=== PATIENT | female | born 1990 | race African-American/Black ===

== ENCOUNTER 2024-02-13 19:40 | Emergency (ER) | payer OTHER, SELFPAY ==
[2024-02-13 19:40] VITALS: BMI 39.4
[2024-02-13 19:42] VITALS: BP 150/96
[2024-02-13 20:13] LABS: % Basophils 0.3 % (0-2); % Eosinophils 1.8 % (0-6); % Immature Granulocytes 0.2 % (0-0.5); % Lymphocytes 37.4 % (20.5-51.1); % Monocytes 8.4 % (1.7-9.3); % Neutrophils 51.9 % (42.2-75.2); Absolute Eosinophils 0.1 10^3/uL (0-0.7); Absolute Lymphocytes 2.3 10^3/uL (1.2-3.4); Absolute Monocytes 0.5 10^3/uL (0.1-0.6); Absolute Neutrophils 3.1 10^3/uL (1.4-6.5); Hematocrit 28.9 % (37.0-47.0); Hemoglobin 9.1 g/dL (12.0-16.0); Mean Corp Hgb Conc. 31.5 g/dL (33.0-37.0); Mean Corpuscular Hgb 23.1 pg (27.0-31.0); Mean Corpuscular Volume 73.4 fL (81.0-99.0); Mean Platelet Volume 11.6 fL (7.4-10.4); Nucleated Red Blood Cells % 0 %; Platelet Count 276 10^3/uL (130-400); Red Blood Cell Count 3.94 10^6/uL (4.20-5.40); Red Cell Dist. Width 17.2 % (11.5-14.5)
[2024-02-13 20:28] LABS: HCG, Serum Qualitative Screen Negative
[2024-02-13 20:34] LABS: ALT (SGPT) 12 U/L (0-35); AST (SGOT) 22 U/L (14-36); Albumin 4.3 g/dl (3.5-5.0); Alkaline Phosphatase 115 U/L (38-126); Blood Urea Nitrogen 11 mg/dl (7-17); Calcium 9.5 mg/dl (8.4-10.2); Carbon Dioxide 22 mmol/L (22-30); Chloride 108 mmol/L (98-107); Glucose 69 mg/dl (70-99); Potassium 4.5 mmol/L (3.5-5.1); Sodium 140 mmol/L (135-145); Total Bilirubin 0.3 mg/dl (0.2-1.3); Total Protein 7.7 g/dl (6.3-8.2); eGFR > 60.00
[2024-02-13 20:37] LABS: Troponin I < 0.012 ng/ml
[2024-02-13 21:42] VITALS: BP 93/63
[2024-02-13 22:00] VITALS: BP 98/64
--- NOTE | 2024-02-13 22:18 | ED.GENMED ---
History of Present Illness
General
Chief Complaint: Cardiac Symptoms
Source: patient
Exam Limitations: none
Time Seen by Provider: 02/13/24 21:48
Nursing documentation reviewed up to this point in time: agreed with
Travel History
Have you had any contact with someone who has COVID-19?: No
Do you have any symptoms of coronavirus? Fever > 100 degrees, chills, cough, shortness of breath, sore throat, loss of taste or smell, muscle aches, or headache?: No
History of Present Illness
History of Present Illness:
33 yo female w h/o gastric bypass 09/2021, GERD but not since her gastric bypass, Presents with 2 months of sharp stabbing pain left upper chest and shoulder areas off and on, worse and more frequent past 10 days. Intermittent SOB and 'rapid heart
rate' at times. Denies any symptoms at this time. Asks 'do you think it could be stress?' No recollection of overuse or injury. Works mini shifter as nurses aid.
Hx of significant anemia, followed by heme-onc at [facility] and gets iron infusions. She missed her last infusion, has appointment with Heme-Onc in 4 days.
Denies n/v/d/c. Denies abdominal pain.
Past History
Past History
ED Past Medical History: Asthma and Other (Iron deficiency anemia)
ED Past Surgical History: (x 3) and Other (Gastric bypass 09/2021)
Social History
Tobacco: Non-smoker
Alcohol: None
Personal: Single
Living: with family
Employment: Employed
Review of Systems
Review of Systems
Allergies reviewed?: Yes
All Other Systems: ROS reviewed and negative except as documented in HPI and ROS
Constitutional: Denies fever
Respiratory: Denies cough or trouble breathing
Cardiac: Reports chest pain; Denies diaphoresis, palpitations or syncope
ABD/GI: Denies abdominal pain, nausea, vomiting or diarrhea
: Denies dysuria, frequency or difficulty voiding
Musculoskeletal: Reports other (pain upper left chest and shoulder areas)
Neurological: Reports no symptoms
Phy Exam
Physical Exam
Physical Exam:
GENERAL: No acute distress. A&Ox3.
CONSTITUTIONAL: Afebrile.
EYES: clear, conjunctivae normal
Neck: Supple
ENMT: moist mucus membranes, Pharynx nl
RESPIRATORY: Regular respirations, nonlabored, lungs clear.
CARDIOVASCULAR: Regular rate and rhythm, no murmurs, no rubs.
GI: Soft, nontender, normal BS
MUSCULOSKELETAL: Nontender to palpate about the chest wall and left shoulder, left upper back. Patient standing out of bed, full range of motion of shoulders and torso without elicitation of the pain. Moves with ease. Well perfused.
SKIN: Warm, dry, normal.
PSYCH: Normal mood and affect. Well kept, interactive and appropriate
NEUROLOGIC: Awake, alert and oriented. No focal neurological deficits
Course
Orders/Labs/Results
Orders:
Orders
02/13/24 19:46
Electrocardiogram (*1) Urgent
Reason for Study: Shortness of Breath
EKG- Treatment ONCE
Test Result ONCE
02/13/24 20:06
CMP [Comprehensive Metabolic Panel] Urgent
Complete Blood Count/With Diff Urgent
HCG, Serum Qualitative Screen Urgent
Troponin I Urgent
02/13/24 22:16
CR Chest - 2 Views Urgent
Comment:
Reason For Exam: left chest pain, intermittent SOB
02/13/24 22:34
D-Dimer Urgent
Abnormal Lab Results
02/13/24
20:06
RBC 3.94 L 10^6/uL
(4.20-5.40)
Hgb 9.1 L g/dL
(12.0-16.0)
Hct 28.9 L %
(37.0-47.0)
MCV 73.4 L fL
(81.0-99.0)
MCH 23.1 L pg
(27.0-31.0)
MCHC 31.5 L g/dL
(33.0-37.0)
RDW 17.2 H %
(11.5-14.5)
MPV 11.6 H fL
(7.4-10.4)
Chloride 108 H mmol/L
(98-107)
Glucose 69 L mg/dl
(70-99)
02/13/24 20:06
02/13/24 20:06
Vital Signs
Initial and Last Documented VS:
Initial Vital Signs
Temp Pulse Resp BP Pulse Ox
98 F 86 24 150/96 100
02/13/24 19:42 02/13/24 19:42 02/13/24 19:42 02/13/24 19:42 02/13/24 19:42
Last Documented Vital Signs
Temp Pulse Resp BP Pulse Ox
98 F 63 16 125/77 100
02/13/24 19:42 02/14/24 01:00 02/14/24 01:00 02/14/24 01:00 02/14/24 01:00
MDM/Problems Addressed
Differential Diagnosis Includes:
GERD, musculoskeletal pain, DE, PE, stress
SOB could be from anemia
MDM/Problems Addressed:
33 yo female w h/o gastric bypass 09/2021, GERD but not since her gastric bypass, Presents with 2 months of sharp stabbing pain left upper chest and shoulder areas off and on, worse and more frequent past 10 days. Intermittent SOB and 'rapid heart
rate' at times. Denies any symptoms at this time. Asks 'do you think it could be stress?' No recollection of overuse or injury. Works mini shifter as nurses aid.
Hx of significant anemia, followed by heme-onc at [facility] and gets iron infusions. She missed her last infusion, has appointment with Heme-Onc in 4 days.
Denies n/v/d/c. Denies abdominal pain.
EKG: NSR
8:45 p.m.
CBC: Hgb 9.1 (pt states it has be 7.0 at times). Indices indicated chronic iron deficiency anemia
CMP: normal
Troponin: WNL
02/14/24 12:00 a.m.
D dimer: Normal
HCG neg
CXR NAD
Workup neg, may be musculoskeletal pain
Pt has appointment in 4 days with her Travel Agent about her anemia. Intermittent SOB may be related to this
*EKG
Interpreted by ED Provider?: Yes
EKG Intrepretation Date: 02/13/24
Interpretation: normal
Rate: normal
Rhythm: sinus
[place]: normal axis
Interval: normal interval
QRS Pattern: normal QRS
Ischemia: no ischemia
*Critical Care Note
Total Time (30-74mins, 75-104mins- exclusive of procedures): Not Applicable
ED Attending Note
-
Portions of this chart may have been created with voice recognition software.� Occasional wrong word or��sound alike� substitutions may have occurred due to the inherent limitations of voice recognition software.
Discharge Plan
Departure
Patient Disposition: Home (Routine Discharge)
Date of Disposition: 02/14/24
Time of Disposition: 01:00
Patient with high blood pressure during this ER visit?: No
Condition: Good
Discharge Problem:
Atypical chest pain
Instructions: Costochondritis, Chest Pain (DC), Acid reflux and GERD in adults
Referrals:
ABARINTOS,RAY [Other] - As needed
Activity Restrictions/Additional Instructions:
As we discussed, your workup here tonight shows nothing worrisome.
Ibuprofen 600 mg no more than twice daily for no more than 5 days due to your gastric bypass
your intermittent shortness of breath may be from your anemia,
Interventions
Interventions:
*Risk Screen - Suicide Last Done: 02/13/24 19:42
*General Assessment Last Done: 02/13/24 22:42
*Neglect/Abuse Screening Last Done: 02/13/24 19:42
ED- Fall Risk Assessment Last Done: 02/13/24 22:42
*ED COVID-19 Vaccine History Last Done: 02/14/24 01:16
*Nursing Disposition Last Done: 02/14/24 01:20
ED- Pulmonary Assessment Last Done: 02/13/24 22:42
ED- Cardiac Assessment Last Done: 02/13/24 22:42
Discharge Date and Time
Discharge Date/Time: 02/14/24 01:20
Print Language: BERMUDIAN
[2024-02-13 22:57] LABS: D-Dimer < 0.27 ug/mlFEU (0.00-0.50)
[2024-02-13 23:00] VITALS: BP 124/69
[2024-02-14] VITALS: BP 110/74
[2024-02-14 01:00] VITALS: BP 125/77
== END 2024-02-14 01:20 | disposition home or self-care (01) ==
LOC: EMR 19:40
PROVIDERS: Registered Nurse; Student in an Organized Health Care Education/Training Program; EMERGENCY PHYSICIAN Emergency Medicine
DX: R07.89 Other chest pain (principal); K21.9 Gastro-esophageal reflux disease without esophagitis; J45.909 Unspecified asthma, uncomplicated; D50.9 Iron deficiency anemia, unspecified; Z98.84 Bariatric surgery status
CPT/HCPCS: 99283; 71046; 80053; 84484; 84703; 85025; 85379; 93005

== ENCOUNTER 2024-06-12 08:50 | Emergency (ER) | payer SELFPAY ==
[2024-06-12 09:04] VITALS: BP 109/77
--- NOTE | 2024-06-12 09:52 | ED.GENMED ---
History of Present Illness
<Jeanne Pulido MD, Resident - Last Filed: 06/12/24 12:11>
General
Chief Complaint: Musculo-Skeletal Complaint
Source: patient
Exam Limitations: none
Time Seen by Provider: 06/12/24 09:22
Nursing documentation reviewed up to this point in time: agreed with
History of Present Illness
History of Present Illness:
34-year-old female with history of anemia, supraspinatus tear, who works as a nurses aide in a nursing/rehab facility in [place] presented to the ED for acute onset right arm pain starting at 5:30 AM today when she was helping to roll a large
patient while administering patient care. She describes 5 out of 10 pain and tightness, starting in her right shoulder radiating down to right hand, with numbness of the entire arm and tingling in fingers. There is some mild weakness, and writing
her incident report at work was difficult due to the pain. She was given motrin and acetaminophen with tiger balm which provided some relief.
Past History
<Jeanne Pulido MD, Resident - Last Filed: 06/12/24 12:11>
Past History
ED Past Medical History: Asthma and Other (Iron deficiency anemia, left supraspinatus tear)
ED Past Surgical History: (x 3) and Other (Gastric bypass 09/2021)
Patient has exhibited threatening behavior?: No
Social History
Tobacco: Non-smoker
Alcohol: None
Personal: Single
Living: with family
Employment: Employed
Review of Systems
<Jeanne Pulido MD, Resident - Last Filed: 06/12/24 12:11>
Review of Systems
Constitutional: Denies fever or chills
Respiratory: Denies trouble breathing
Cardiac: Denies chest pain, palpitations or syncope
ABD/GI: Denies abdominal pain, nausea or vomiting
Musculoskeletal: Reports joint pain (Right shoulder and arm pain)
Phy Exam
<Jeanne Pulido MD, Resident - Last Filed: 06/12/24 12:11>
General Physical Exam
General Presentation: well appearing
General age: appears stated age
General Skin: warm and dry
General Mental: alert
Cardiovascular Exam
Cardiovascular Exam: regular rate/rhythm, no edema, no murmur and normal peripheral pulses (Radial)
Pulmonary Exam
Pulmonary Exam: lungs clear, no respiratory distress, no rales, no crackles, no rhonchi and no wheezing
Gastrointestinal Exam
Gastrointestinal Exam: normal bowel sounds, non tender, soft and non distended
Neurological Exam
Neurological Exam: alert, oriented x3 and sensory deficit (Right arm)
Musculoskeletal Exam
Musculoskeletal Exam: full ROM (R shoulder), no edema and other (point tenderness in anterior shoulder and anterior mid arm. Normal cap refill. Pain/weakness on supination vs pronation of R arm. )
Course
<Jeanne Pulido MD, Resident - Last Filed: 06/12/24 12:11>
Orders/Labs/Results
Orders:
Orders
06/12/24 10:00
CR Shoulder - Right Min 2 View Urgent
Comment:
Reason For Exam: pain in shoulder
06/12/24 10:16
Ketorolac [Toradol] 30 mg IM NOW STA
06/12/24 11:50
Sling Right-Treatment ONCE
Vital Signs
Initial and Last Documented VS:
Initial Vital Signs
Temp Pulse Resp BP Pulse Ox
36.6 C 67 16 109/77 98
06/12/24 09:04 06/12/24 09:04 06/12/24 09:04 06/12/24 09:04 06/12/24 09:04
Last Documented Vital Signs
Temp Pulse Resp BP Pulse Ox
36.6 C 67 16 109/77 98
06/12/24 09:04 06/12/24 09:04 06/12/24 09:04 06/12/24 09:04 06/12/24 09:04
<Aman Barr MD - Last Filed: 06/12/24 13:50>
Orders/Labs/Results
Orders:
Orders
06/12/24 10:00
CR Shoulder - Right Min 2 View Urgent
Comment:
Reason For Exam: pain in shoulder
06/12/24 10:16
Ketorolac [Toradol] 30 mg IM NOW STA
06/12/24 11:50
Sling Right-Treatment ONCE
Vital Signs
Initial and Last Documented VS:
Initial Vital Signs
Temp Pulse Resp BP Pulse Ox
36.6 C 67 16 109/77 98
06/12/24 09:04 06/12/24 09:04 06/12/24 09:04 06/12/24 09:04 06/12/24 09:04
Last Documented Vital Signs
Temp Pulse Resp BP Pulse Ox
36.6 C 67 16 109/77 98
06/12/24 09:04 06/12/24 09:04 06/12/24 09:04 06/12/24 09:04 06/12/24 09:04
<Jeanne Pulido MD, Resident - Last Filed: 06/12/24 12:11>
MDM/Problems Addressed
Differential Diagnosis Includes:
Shoulder sprain, Tendon rupture, shoulder subluxation
MDM/Problems Addressed:
Anxious appearing patient. Otherwise stable, in no obvious distress. Will get R shoulder x-ray and reassess shortly.
Shoulder x-ray was negative for fracture or dislocation. Improvement in symptoms with Toradol. Pt can follow up with orthopedic surgery shortly. Can use Ibuprofen, ice compress for relief of pain or swelling. Discussed reasons to return to ED.
<Jeanne Pulido MD, Resident - Last Filed: 06/12/24 12:11>
*Critical Care Note
Total Time (30-74mins, 75-104mins- exclusive of procedures): Not Applicable
ED Attending Note
<Jeanne Pulido MD, Resident - Last Filed: 06/12/24 12:11>
-
Portions of this chart may have been created with voice recognition software.� Occasional wrong word or��sound alike� substitutions may have occurred due to the inherent limitations of voice recognition software.
<Aman Barr MD - Last Filed: 06/12/24 13:50>
ED Attending Note
Patient seen and examined by attending physician: Yes
I performed a history and physical exam of patient and discussed management with resident, I reviewed resident's note and agree with documented findings and plan of care.: Yes
ED Attending Note:
I have seen and evaluated the patient with a [id number] encounter. I have spoken to the resident and involved in the medical history, the physical exam, medical decision making.
Evaluation and management service: agree unless noted differently below.
Results interpretation: agree unless noted differently below.
Focused HPI: 34-year-old female presents for evaluation of shoulder pain. 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 She says she has had some tingling down her right arm and pain in
the right shoulder since. Difficulty moving the shoulder due to pain. Came to the ER for evaluation.
Physical exam: Awake alert no distress. Vital signs normal. On exam of the right shoulder she has tenderness along the anterior humeral head and proximal bicep; no ecchymosis or swelling in the area; no tenderness along the deltoid, scapula,
clavicle; no tenderness in the elbow; she has pain on extension, internal rotation, abduction of the right shoulder. Motor and sensory function intact radial, median, ulnar nerve distribution right upper extremity. She has a good strong right
radial pulse.
Medical Decision Makin-year-old female presents with right shoulder pain�felt pain in the shoulder after rolling a very heavy patient at work. Exam as above. Suspect likely rotator cuff injury versus bicep tear. X-ray reviewed: No
dislocation or fracture noted. Placed in a sling, treated with Toradol, advised Tylenol/Motrin as needed, follow-up with orthopedic.
Discharge Plan
Departure
Patient Disposition: Home (Routine Discharge)
Date of Disposition: 06/12/24
Time of Disposition: 12:00
Patient with high blood pressure during this ER visit?: No
Condition: Fair
Discharge Problem:
Acute shoulder pain
Instructions: Shoulder Sprain (DC), How to Use a Shoulder Sling ED
Referrals:
Meir Cat MD [Active] -
Rayshawn Rock MD [Active] - Call in 1-3 days for appt
UNKNOWN - PT DOES,NOT KNOW [Family Provider] -
Stand Alone Forms: Return to Work
Activity Restrictions/Additional Instructions:
Can use Ibuprofen (Advil, Motrin) for pain and inflammation. Reduce excess movement with R arm, cold compress to help with pain/swelling.
Follow up with orthopedic surgeon shortly
Follow up with PCP
Interventions
Interventions:
*Risk Screen - Suicide Last Done: 06/12/24 09:03
*General Assessment Last Done: 06/12/24 12:11
*Neglect/Abuse Screening Last Done: 06/12/24 12:11
ED- Fall Risk Assessment Last Done: 06/12/24 12:11
*ED COVID-19 Vaccine History Last Done: 06/12/24 12:11
*Nursing Disposition Last Done: 06/12/24 12:11
ED-Musculoskeletal Assessment Last Done: 06/12/24 12:11
Discharge Date and Time
Discharge Date/Time: 06/12/24 12:13
Print Language: AFGHAN
[2024-06-12] MEDS: TORADOL 30 MG IM (10:35)
== END 2024-06-12 12:13 | disposition home or self-care (01) ==
LOC: EMR 08:50
PROVIDERS: EMERGENCY PHYSICIAN Emergency Medicine
DX: M25.511 Pain in right shoulder (principal); X50.0XXA Overexertion from strenuous movement or load, initial encounter; Y99.0 Civilian activity done for income or pay
CPT/HCPCS: 99284; 96372; 73030

== ENCOUNTER 2025-01-08 18:16 | Emergency (ER) | payer OTHER, SELFPAY ==
[2025-01-08] VITALS (9 sets, daily range): BP systolic 113–134; BP diastolic 71–86; PULSE 64–91; BMI 37.4
[2025-01-08 18:36] LABS: % Basophils 0.3 % (0-2); % Eosinophils 1.4 % (0-6); % Immature Granulocytes 0.3 % (0-0.5); % Lymphocytes 31.1 % (20.5-51.1); % Monocytes 8.2 % (1.7-9.3); % Neutrophils 58.7 % (42.2-75.2); Absolute Eosinophils 0.1 10^3/uL (0-0.7); Absolute Lymphocytes 2.2 10^3/uL (1.2-3.4); Absolute Monocytes 0.6 10^3/uL (0.1-0.6); Absolute Neutrophils 4.1 10^3/uL (1.4-6.5); Hematocrit 33.6 % (37.0-47.0); Hemoglobin 11.3 g/dL (12.0-16.0); Mean Corp Hgb Conc. 33.6 g/dL (33.0-37.0); Mean Corpuscular Volume 89.1 fL (81.0-99.0); Mean Platelet Volume 12.5 fL (7.4-10.4); Nucleated Red Blood Cells % 0 %; Platelet Count 203 10^3/uL (130-400); Red Blood Cell Count 3.77 10^6/uL (4.20-5.40); Red Cell Dist. Width 12.9 % (11.5-14.5); White Blood Cell Count 6.9 10^3/uL (4.8-10.8)
[2025-01-08 18:51] LABS: HCG, Serum Qualitative Screen Negative
[2025-01-08 19:01] LABS: ALT (SGPT) < 10 U/L (0-35); AST (SGOT) 16 U/L (14-36); Albumin 3.5 g/dl (3.5-5.0); Alkaline Phosphatase 88 U/L (38-126); Blood Urea Nitrogen 10 mg/dl (7-17); Carbon Dioxide 25 mmol/L (22-30); Chloride 111 mmol/L (98-107); Glucose 79 mg/dl (70-99); Potassium 4.4 mmol/L (3.5-5.1); Sodium 143 mmol/L (135-145); Total Bilirubin 0.4 mg/dl (0.2-1.3); Total Protein 6.6 g/dl (6.3-8.2); eGFR > 60.00
--- NOTE | 2025-01-08 20:22 | ED.GENMED ---
History of Present Illness
General
Chief Complaint: Dizziness
Source: patient
Exam Limitations: none
Time Seen by Provider: 01/08/25 20:01
Nursing documentation reviewed up to this point in time: agreed with
History of Present Illness
History of Present Illness:
Patient presents to ED secondary to 'lightheadedness' over the past 24 hours. Patient was evaluated urgent care center, where she was found to be hypotensive when standing up, and was referred to ED for an evaluation. Of note, patient is currently
being evaluated by [place] [employer]PING MACHINE OPERATOR physician secondary to ongoing intermittent vaginal bleeding. Patient is currently taking control pills, which is not helping, per patient. Patient has bled continuously for the past 2 weeks. Patient
reports that her vaginal bleeding only stopped for 8 days, before restarting 2 weeks ago. Patient is scheduled to see her CREPING MACHINE OPERATOR physician next week. Of note, patient also states that she took high dose of Wegovy medication yesterday, prior to
onset of symptoms, at the recommendation of her physician. Patient denies having had any similar symptoms with previous treatment with Wegovy. Denies headache. Denies loss of sensation or weakness. Denies difficulty with ambulation.
Past History
Past History
ED Past Medical History: Asthma and Other (Iron deficiency anemia, left supraspinatus tear)
ED Past Surgical History: (x 3) and Other (Gastric bypass 09/2021)
Patient has exhibited threatening behavior?: No
Social History
Tobacco: Non-smoker
Alcohol: None
Personal: Single
Living: with family
Employment: Employed
Review of Systems
Review of Systems
Allergies reviewed?: Yes
All Other Systems: ROS reviewed and negative except as documented in HPI and ROS
Constitutional: Reports no symptoms
Respiratory: Reports no symptoms
Cardiac: Reports no symptoms
ABD/GI: Reports no symptoms
: Reports bleeding
Musculoskeletal: Reports no symptoms
Skin: Reports no symptoms
Neurological: Reports dizzy
Phy Exam
Physical Exam
Physical Exam:
Physical Exam
General: no apparent distress, not acutely ill. afebrile
Head: nc/at. eomi
Neck: supple. normal range of motion.
Heart: s1/s2 regular rate and rhythm, no murmur.
Lungs: no acute respiratory distress. clear bilaterally
Abdomen: normal bowel sounds. not tender.
Neuro: alert and oriented x 3. no focal neurological deficits
Skin: no rash
Psychiatric: well kept. interactive and cooperative
Extremities: no edema. no calf tenderness.
Course
Orders/Labs/Results
Orders:
Orders
01/08/25 18:23
Test Result ONCE
01/08/25 18:29
Complete Blood Count/With Diff Urgent
Comprehensive Metabolic Panel Urgent
HCG, Serum Qualitative Screen Urgent
01/08/25 20:35
Orthostatic VS- Treatment ONCE
01/08/25 20:51
0.9% Sodium Chloride 500 ml [Nss] 500 ml IV BOLUS
Abnormal Lab Results
01/08/25
18:29
RBC 3.77 L 10^6/uL
(4.20-5.40)
Hgb 11.3 L g/dL
(12.0-16.0)
Hct 33.6 L %
(37.0-47.0)
MPV 12.5 H fL
(7.4-10.4)
Chloride 111 H mmol/L
(98-107)
01/08/25 18:29
01/08/25 18:29
Vital Signs
Initial and Last Documented VS:
Initial Vital Signs
Temp Pulse Resp BP Pulse Ox
98.0 F 78 16 126/86 98
01/08/25 18:19 01/08/25 18:19 01/08/25 18:19 01/08/25 18:19 01/08/25 18:19
Last Documented Vital Signs
Temp Pulse Resp BP Pulse Ox
98.0 F 82 17 113/71 98
01/08/25 18:19 01/08/25 22:15 01/08/25 22:15 01/08/25 22:00 01/08/25 21:30
MDM/Problems Addressed
MDM/Problems Addressed:
Patient's presenting symptoms likely multifactorial, including ongoing vaginal bleeding along with potential side effects from higher dose of Wegovy treatment last night, which coincides with her symptoms. Otherwise, patient with unremarkable
workup, including stable H&H. Patient remains afebrile, hemodynamically stable, and neurologically intact. Orthostatic vital signs in ED within normal limits. Patient given sandwich and observed further. Patient will be discharged home in stable
condition, to the care of her family, with recommendation to follow-up with her CREPING MACHINE OPERATOR physician for reevaluation, as well as having discussion with her PCP regarding future use of Wegovy, as it may be contributing to her symptoms.
*Critical Care Note
Total Time (30-74mins, 75-104mins- exclusive of procedures): Not Applicable
ED Attending Note
-
Portions of this chart may have been created with voice recognition software.� Occasional wrong word or��sound alike� substitutions may have occurred due to the inherent limitations of voice recognition software.
Discharge Plan
Departure
Patient Disposition: Home (Routine Discharge)
Date of Disposition: 01/08/25
Time of Disposition: 22:13
Patient with high blood pressure during this ER visit?: No
Condition: Good
Discharge Problem:
Dizziness, Vaginal bleeding
Instructions: Bleeding between periods, Dizziness
Referrals:
UNKNOWN - PT DOES,NOT KNOW [Family Provider] -
Stand Alone Forms: Return to Work
Activity Restrictions/Additional Instructions:
As discussed, please follow-up with your primary care physician and CREPING MACHINE OPERATOR physician for further evaluation and treatment.
Interventions
Interventions:
*Risk Screen - Suicide Last Done: 01/08/25 18:19
*General Assessment Last Done: 01/08/25 19:12
*Neglect/Abuse Screening Last Done: 01/08/25 18:19
*ED- Fall Risk Assessment Last Done: 01/08/25 19:12
*ED COVID-19 Vaccine History Last Done: 01/08/25 19:12
*Nursing Disposition Last Done: 01/08/25 22:29
ED- Neurological Assessment Last Done: 01/08/25 19:12
ED- Cardiac Assessment Last Done: 01/08/25 19:12
ED Swallowing Screen Last Done: 01/08/25 19:23
Discharge Date and Time
Discharge Date/Time: 01/08/25 22:31
Print Language: EMIRATI
== END 2025-01-08 22:31 | disposition home or self-care (01) ==
LOC: EMR 18:16
PROVIDERS: Emergency Medicine; EMERGENCY PHYSICIAN Emergency Medicine
DX: R42 Dizziness and giddiness (principal); N93.9 Abnormal uterine and vaginal bleeding, unspecified; J45.909 Unspecified asthma, uncomplicated; D50.9 Iron deficiency anemia, unspecified; Z98.84 Bariatric surgery status
CPT/HCPCS: 99283; 80053; 84703; 85025